=== PATIENT | male | born 1995 | race Caucasian/White ===

== ENCOUNTER 2016-02-28 16:07 | Inpatient (IN) | payer BC, OTHER ==
[2016-02-28] MEDS ORDERED: ONDANSETRON 4 MG/2 ML VIAL ONE (16:19)
[2016-02-28] MEDS ORDERED: ONDANSETRON 4 MG/2 ML VIAL IVP ONE (16:20)
[2016-02-28] MEDS ORDERED: NS 1,000 ML IV ONE ×2 (16:35→17:56)
[2016-02-28] MEDS ORDERED: PROMETHAZINE HCL 25 MG/ML INJ IVP ONE ×2 (16:35→17:50)
[2016-02-28 16:41] LABS: % IMMATURE GRANULYOCYTES 0.4 % (0.0-1.1); ABSOLUTE IMMATURE GRANULOCYTES 0.04 10^3/uL (0.00-0.10); ADD DIFF? NO; ADD MORPH? NO; ADD SCAN? NO; ATYPICAL LYMPHOCYTE FLAG 40 (0-99); FRAGMENT RBC FLAG 0 (0-99); HEMATOCRIT 51.2 % (40.0-51.0); HEMOGLOBIN 18.1 g/dL (13.7-17.5); LEFT SHIFT FLG 0 (0-99); LIPEMIA HEMOLYSIS FLAG 90 (0-99); MEAN CELL HEMOGLOBIN 29.1 pg (27.9-34.1); MEAN CELL HEMOGLOBIN CONCENTR. 35.4 g/dL (32.4-36.7); MEAN CELL VOLUME 82.2 fL (81.5-99.8); MEAN PLATELET VOLUME 9.3 fL (8.7-11.7); PLATELET CLUMPS FLAG 0 (0-99); PLATELET COUNT 272 10^3/uL (150-400); RED BLOOD CELL COUNT 6.23 10^6/uL (4.40-6.38); RED CELL DISTRIBUTION WIDTH 12.6 % (11.5-15.2)
[2016-02-28 16:48] LABS: ALANINE AMINOTRANSFERASE 47 IU/L (21-72); ALBUMIN 4.7 g/dL (3.5-5.0); ALKALINE PHOSPHATASE 109 IU/L (38-126); ANION GAP 20 mEq/L (8-16); ASPARTATE AMINOTRANSFERASE 44 IU/L (17-59); BILIRUBIN,TOTAL 0.7 mg/dL (0.1-1.4); BILIRUBIN-CONJUGATED 0.3 mg/dL (0.0-0.5); BILIRUBIN-UNCONJUGATED 0.4 mg/dL (0.0-1.1); CALCIUM 9.7 mg/dL (8.5-10.4); CARBON DIOXIDE 21 mEq/l (22-31); CHLORIDE 101 mEq/L (97-110); CREATININE 0.9 mg/dL (0.7-1.3); GLOMERULAR FILTRATION RATE > 60; GLUCOSE 150 mg/dL (70-100); POTASSIUM 3.7 mEq/L (3.5-5.2); SODIUM 142 mEq/L (134-144)
--- NOTE | 2016-02-28 16:58 | EDPHY ---
H & P Time Seen by Provider: 02/28/16 16:31 HPI/ROS: CHIEF COMPLAINT: vomiting HISTORY OF PRESENT ILLNESS: Patient is a 20-year-old male with a history of cyclic vomiting syndrome who presents to the emergency department with typical vomiting syndrome symptoms. Patient's symptoms are 2-3 hours ago. He has had numerous episodes of nonbloody emesis. He denies any significant abdominal pain. He has had no diarrhea. He denies fevers or chills. Patient does use marijuana regularly. REVIEW OF SYSTEMS: My complete review of systems is negative except as mentioned in the HPI. Past Medical/Surgical History: Includes cyclic vomiting syndrome, eating disorder (reported to be secondary to cyclic vomiting syndrome) Past surgical history: Negative Social history: Patient uses THC. No smoking. Smoking Status: Never smoked Physical Exam: 137/91, 81, 18, 92% on room air GENERAL: Well-appearing, in no acute distress, alert. HEENT: Eyes normal to inspection, normal pharynx, no signs of dehydration. NECK: No thyromegaly, no lymphadenopathy, supple. RESPIRATORY: Clear to auscultation bilaterally, no rales, rhonchi or wheezing. CVS: Regular rate and rhythm, no rubs, murmurs, or gallops. ABDOMEN: Soft, nontender, nondistended, no organomegaly. Benign. BACK: Normal to inspection, no CVA tenderness. SKIN: Normal color, no rash, warm, dry. No pallor. EXTREMITIES: No pedal edema, no calf tenderness, no Homans sign or cords, no joint swelling. NEURO/PSYCH: Alert and oriented, normal mood and affect, normal motor sensory exam. Constitutional: Initial Vital Signs Heart Rate 81 02/28/16 16:12 Respiratory Rate 18 02/28/16 16:12 Blood Pressure 137/91 H 02/28/16 16:12 O2 Sat (%) 92 02/28/16 16:12 O2 Delivery Mode Room Air Allergies/Adverse Reactions: haloperidol Allergy (Verified 02/04/16 15:48) Home Medications: Medication Instructions Recorded NK [No Known Home Meds] 02/04/16 Medical Decision Making ED Course/Re-evaluation: In the emergency department I discussed possible etiologies. I discussed the patient's typical treatment. He normally receives Phenergan IV fluid. Patient was given Phenergan 12.5 mg IV and normal saline 1 L for IV hydration. I discussed the plan with the patient. I answered all his questions. Patient had minimally elevated white count. His hematocrit is elevated at 51. His chemistry showed a slightly low bicarb. LFTs and lipase normal. 1834: I rechecked the patient. He is lying comfortably in the room. His abdomen is soft, nontender nondistended. He was given a challenge of liquid. On recheck the patient was nauseated and had an episode of emesis. He continues to feel nauseated at this time. He will be admitted for further observation and treatment. I discussed this with the hospitalist service. Differential Diagnosis: My differential includes but is not limited to cyclic vomiting syndrome, small- bowel obstruction, perforation, pancreatitis, cholecystitis, dehydration - Data Points Laboratory Results: Laboratory Results 02/28/16 16:25 02/28/16 16:25 02/28/16 16:25 WBC 10.85 H 10^3/uL (3.80-9.50) RBC 6.23 10^6/uL (4.40-6.38) Hgb 18.1 H g/dL (13.7-17.5) Hct 51.2 H % (40.0-51.0) MCV 82.2 fL (81.5-99.8) MCH 29.1 pg (27.9-34.1) MCHC 35.4 g/dL (32.4-36.7) RDW 12.6 % (11.5-15.2) Plt Count 272 10^3/uL (150-400) MPV 9.3 fL (8.7-11.7) Neut % (Auto) 83.6 H % (39.3-74.2) Lymph % (Auto) 12.6 L % (15.0-45.0) [place] % (Auto) 3.2 L % (4.5-13.0) Eos % (Auto) 0.1 L % (0.6-7.6) Baso % (Auto) 0.1 L % (0.3-1.7) Nucleat RBC Rel Count 0.0 % (0.0-0.2) Absolute Neuts (auto) 9.07 H 10^3/uL (1.70-6.50) Absolute Lymphs (auto) 1.37 10^3/uL (1.00-3.00) Absolute Monos (auto) 0.35 10^3/uL (0.30-0.80) Absolute Eos (auto) 0.01 L 10^3/uL (0.03-0.40) Absolute Basos (auto) 0.01 L 10^3/uL (0.02-0.10) Absolute Nucleated RBC 0.00 10^3/uL (0-0.01) Immature Gran % 0.4 % (0.0-1.1) Immature Gran # 0.04 10^3/uL (0.00-0.10) Sodium 142 mEq/L (134-144) Potassium 3.7 mEq/L (3.5-5.2) Chloride 101 mEq/L (97-110) Carbon Dioxide 21 L mEq/l (22-31) Anion Gap 20 mEq/L (8-16) BUN 4 L mg/dL (7-23) Creatinine 0.9 mg/dL (0.7-1.3) Estimated GFR > 60 Glucose 150 H mg/dL (70-100) Calcium 9.7 mg/dL (8.5-10.4) Total Bilirubin 0.7 mg/dL (0.1-1.4) Conjugated Bilirubin 0.3 mg/dL (0.0-0.5) Unconjugated Bilirubin 0.4 mg/dL (0.0-1.1) AST 44 IU/L (17-59) ALT 47 IU/L (21-72) Alkaline Phosphatase 109 IU/L (38-126) Total Protein 8.0 g/dL (6.3-8.2) Albumin 4.7 g/dL (3.5-5.0) Lipase 128.0 IU/L (23-300) Medications Given: Discontinued Medications Sodium Chloride (Ns) 1,000 mls @ 0 mls/hr IV ONCE ONE PRN Reason: Wide Open Stop: 02/28/16 16:36 Last Admin: 02/28/16 16:36 Dose: 1,000 mls Sodium Chloride (Ns) 1,000 mls @ 0 mls/hr IV ONCE ONE PRN Reason: Wide Open Stop: 02/28/16 17:57 Last Admin: 02/28/16 17:56 Dose: 1,000 mls Lorazepam (Ativan Injection) 1 mg IVP EDNOW ONE Stop: 02/28/16 17:22 Last Admin: 02/28/16 17:22 Dose: 1 mg Ondansetron HCl (Zofran) 4 mg IVP EDNOW ONE Stop: 02/28/16 16:21 Last Admin: 02/28/16 16:57 Dose: 4 mg Promethazine HCl (Phenergan Injection) 12.5 mg IVP ONCE ONE Stop: 02/28/16 16:36 Last Admin: 02/28/16 16:57 Dose: 12.5 mg Promethazine HCl (Phenergan Injection) 12.5 mg IVP ONCE ONE Stop: 02/28/16 17:51 Last Admin: 02/28/16 17:52 Dose: Not Given Departure - Departure Disposition: [facility] Acute Clinical Impression: Cyclical vomiting Qualifiers: Qualifier Code: (G43.A0) Cyclical vomiting, not intractable Condition: Good
[2016-02-28] MEDS ORDERED: LORazepam 2 MG/ML INJ ONE (17:14)
[2016-02-28] MEDS ORDERED: LORazepam 2 MG/ML INJ IVP ONE (17:21)
--- NOTE | 2016-02-28 17:51 | DX ---
PA AND LATERAL CHEST FEBRUARY 28, 2016 INDICATION: Trauma. FINDINGS: No pneumothorax. No pneumomediastinum. Bones and soft tissues are normal. No fracture. IMPRESSION: Negative radiograph of the chest.
[2016-02-28] MEDS ORDERED: PROMETHAZINE HCL 25 MG/ML INJ IVP PRN (19:56)
[2016-02-28] MEDS ORDERED: ONDANSETRON DISINTEGRATING 4 MG TAB PO PRN (19:56)
[2016-02-28] MEDS ORDERED: LORazepam 2 MG/ML INJ IVP PRN (19:56)
[2016-02-28] MEDS ORDERED: ACETAMINOPHEN 325 MG TAB PO PRN (19:56)
[2016-02-28] MEDS ORDERED: NS 1,000 ML IV SCH (20:00)
[2016-02-28] MEDS ORDERED: IBUPROFEN 200 MG TAB PO PRN (20:24)
[2016-02-28] MEDS ORDERED: AMITRIPTYLINE HCL 50 MG TAB PO PRN (20:24)
--- NOTE | 2016-02-28 20:40 | GHP ---
[f rep st] HISTORY AND PHYSICAL DATE OF ADMISSION: 02/28/2016 CHIEF COMPLAINT: Vomiting. HISTORY OF PRESENT ILLNESS: This is a 20-year-old man with a history of marijuana hyperemesis, who presents with uncontrollable vomiting. This started today. He estimates he has vomited about 20 times. This has been bilious but not bloody. This feels like his previous episodes of uncontrolled vomiting. He has some abdominal pain which started after he has been vomiting. He verbally gave me permission to discuss his healthcare with his parents. He initially told me he has not been using marijuana, but his parents contradicted this. PAST MEDICAL/SURGICAL HISTORY: 1. Repeated episodes of marijuana hyperemesis. 2. Ongoing marijuana abuse. 3. Eating disorder. MEDICATIONS: Please see medication reconciliation. ALLERGIES: Haldol. FAMILY HISTORY: No one else has been sick around him. SOCIAL HISTORY: Uses marijuana, as above. REVIEW OF SYSTEMS: 10-point review of systems is conducted and is negative except per HPI. PHYSICAL EXAM: VITAL SIGNS: Blood pressure 137/91, heart rate 81, respiration rate 18, saturating 92% on room air, temperature 36.8. GENERAL: The patient is a withdrawn-appearing young man, who appears moderately distressed. HEENT: Shows him to have no scleral icterus. CARDIOVASCULAR: Regular rate and rhythm. There are no murmurs, rubs, or gallops. PULMONARY: Lungs clear bilaterally. ABDOMINAL EXAM: Soft. He is mildly tender to palpation diffusely. There is no mass or hepatosplenomegaly. SKIN: Shows no rash. : Exam showed no [place]. NEUROLOGIC EXAM: Shows him to be alert and oriented x3. He is moving all extremities. PSYCHIATRIC: Exam shows a withdrawn affect. LABS: Hemoglobin is 18, white count is 10, bicarb is 21, glucose 150. LFTs are normal. DATA: 1. Chest x-ray, which I personally viewed and interpreted, shows nothing acute. This is normal. 2. I discussed this with Dr. Vaughn. Will admit to Med/Surg. IMPRESSION AND PLAN: A 20-year-old man with likely marijuana hyperemesis presents with uncontrolled vomiting. 1. Uncontrolled vomiting: Strongly suspect that this is marijuana hyperemesis much more so than cyclic vomiting syndrome. Treat him symptomatically with fluids and antiemetics. He has had what sounds like dystonic reactions to Haldol in the past. 2. Ongoing marijuana abuse: His father pulled me aside and let me know that the family has planned an intervention for next Tuesday. The patient himself does not know this. This seems like a very appropriate next step for him. /[id number]/MODL MTDD
[2016-02-28] MEDS: ONDANSETRON 4 MG/2 ML VIAL IVP PRN (21:07)
[2016-02-29] MEDS: ONDANSETRON 4 MG/2 ML VIAL IVP PRN (05:47)
[2016-02-29 06:16] LABS: % IMMATURE GRANULYOCYTES 0.2 % (0.0-1.1); ABSOLUTE IMMATURE GRANULOCYTES 0.01 10^3/uL (0.00-0.10); ADD DIFF? NO; ADD MORPH? NO; ADD SCAN? NO; ATYPICAL LYMPHOCYTE FLAG 70 (0-99); FRAGMENT RBC FLAG 0 (0-99); HEMOGLOBIN 14.4 g/dL (13.7-17.5); LEFT SHIFT FLG 0 (0-99); LIPEMIA HEMOLYSIS FLAG 90 (0-99); MEAN CELL HEMOGLOBIN 29.9 pg (27.9-34.1); MEAN PLATELET VOLUME 9.4 fL (8.7-11.7); PLATELET CLUMPS FLAG 0 (0-99); PLATELET COUNT 226 10^3/uL (150-400); RED BLOOD CELL COUNT 4.82 10^6/uL (4.40-6.38); RED CELL DISTRIBUTION WIDTH 12.7 % (11.5-15.2)
[2016-02-29 06:23] LABS: ANION GAP 11 mEq/L (8-16); CALCIUM 8.5 mg/dL (8.5-10.4); CARBON DIOXIDE 23 mEq/l (22-31); CHLORIDE 107 mEq/L (97-110); CREATININE 0.7 mg/dL (0.7-1.3); GLOMERULAR FILTRATION RATE > 60; GLUCOSE 86 mg/dL (70-100); POTASSIUM 3.8 mEq/L (3.5-5.2); SODIUM 141 mEq/L (134-144)
--- NOTE | 2016-02-29 15:45 | HOSPPROG ---
Hospitalist Progress Note Assessment/Plan: Cannabis hyperemesis syndrome Intractable nausea/vomiting - improved Severe Protein-calorie malnutrition Underweight Risk of refeeding syndrome Cannabis addiction -prn antiemetics. -Trial clear liquid diet. May ADAT. -Counseled on cessation. However pt does not wish to quit smoking marijuana. He feels that the CHS is tolerable bc it only occurs sometimes. He does not understand that gravity of his illness, of being extremely underweight/ malnourished -- says that it is "morbid" to bring up potential complications including that can result from continued weight loss. -Discussed pt's case with his parents for about 25 minutes. They are planning an intervention on Tuesday morning with an post closing specialist from an inpatient Rehab facility in [place] called [facility]. -Put pt on a psychiatric hold -- his behavior is harmful to his health. Recommend daily evaluation of patient for whether or not to lift legal hold. -Pt was previously sent to Psych inpt unit, but both he and his parents were dissatisfied with the treatment he had received there. They also felt the Tx at the Eating disorder inpt unit was not helpful. They would really like to send him to an addiction inpt facility in [place] now (post closing specialist arriving on AM for intervention). -Electrolyte protocol in case of refeeding syndrome. May check labs every few days to monitor electrolytes. -Low sodium diet to avoid edema in case of RFS. -VTE ppx - ambulatory, low risk. -Code status - full. Dispo: >2 midnight stay. Objective: Vital Signs Temp Pulse Resp BP Pulse Ox 36.8 C 84 16 97/52 L 97 02/29/16 11:24 02/29/16 11:24 02/29/16 11:24 02/29/16 11:24 02/29/16 11:24 Laboratory Results 02/29/16 05:47 02/29/16 05:47 02/28/16 02/29/16 03/01/16 05:59 05:59 05:59 Intake Total 3062 Balance 3062 - Time Spent With Patient Time Spent with Patient: greater than 35 minutes Time Spent with Patient: Greater than 35 minutes spent on this patients care, greater than 50% of time spent counseling, educating, and coordinating care regarding the above mentioned plan. ICD10 Worksheet Patient Problems: Problems Problem Status Diagnosed Cyclical vomiting Acute Dehydration Acute Intractable vomiting with nausea Acute Nausea & vomiting Acute Weight loss Acute
[2016-02-29] MEDS ORDERED: PROTOCOL POTASSIUM 1 DOSE MISC PRN (19:08)
[2016-02-29] MEDS ORDERED: PROTOCOL K PHOSPHATE 1 DOSE IV PRN (19:08)
[2016-02-29] MEDS ORDERED: PROTOCOL CALCIUM 1 DOSE IV PRN (19:08)
[2016-02-29] MEDS ORDERED: PROTOCOL MAGNESIUM 1 DOSE IV PRN (19:08)
[2016-02-29 20:31] LABS: IONIZED CALCIUM 1.14 MMOL/L (1.12-1.30)
[2016-02-29 20:50] LABS: MAGNESIUM 1.9 mg/dL (1.6-2.3); POTASSIUM 3.4 mEq/L (3.5-5.2)
[2016-02-29] MEDS ORDERED: POTASSIUM CL 10 MEQ TAB PO ONE (20:56)
[2016-02-29 22:17] LABS: PHENCYCLIDINE URINE BCH < 6 ng/ml (NEGATIVE)
[2016-02-29 22:28] LABS: PHENCYCLIDINE URINE BCH NEGATIVE (NEGATIVE); TETRAHYDROCANNABINOL URINE 429 ng/mL (NEGATIVE)
[2016-03-01 06:01] LABS: IONIZED CALCIUM 1.18 MMOL/L (1.12-1.30)
[2016-03-01 06:18] LABS: MAGNESIUM 1.9 mg/dL (1.6-2.3); POTASSIUM 4.4 mEq/L (3.5-5.2)
--- NOTE | 2016-03-01 14:31 | HOSPPROG ---
Hospitalist Progress Note Assessment/Plan: * marijuana hyperemesis syndrome * this is been a severe problem. The patient was in inpatient psych firs during the summer and parents felt this was not that helpful. He was actually sent to eating disorder clinic from inpatient psych as they thought that he might have anorexia. * Family is planning and intervention Tuesday with a therapist from [place] * at this point even though his actions are compromising his help her do not believe that he is actively suicidal * he does not seem like he is a flight risk at this time. * I do not believe he should be on hold * will however keep him in the hospital another day for this intervention as planned Subjective: not having any vomiting. No abdominal pain Objective: Vital Signs Temp Pulse Resp BP Pulse Ox 36.8 C 78 16 104/72 98 03/01/16 10:33 03/01/16 10:33 03/01/16 10:33 03/01/16 10:33 03/01/16 10:33 Laboratory Results 03/01/16 05:35 02/29/16 03/01/16 03/02/16 05:59 05:59 05:59 Intake Total 3970 Balance 3970 - Physical Exam Constitutional: no apparent distress, appears nourished, not in pain, cachectic Eyes: anicteric sclera, EOMI Ears, Nose, Mouth, Throat: moist mucous membranes, hearing normal Cardiovascular: regular rate and rhythym Respiratory: no respiratory distress Gastrointestinal: normoactive bowel sounds, soft, non-tender abdomen, no palpable masses Neurologic: AAOx3 Psychiatric: interacting appropriately, not anxious, not encephalopathic, thought process linear ICD10 Worksheet Patient Problems: Problems Problem Status Diagnosed Cyclical vomiting Acute Dehydration Acute Intractable vomiting with nausea Acute Nausea & vomiting Acute Weight loss Acute
[2016-03-01 21:21] LABS: POTASSIUM 3.9 mEq/L (3.5-5.2)
[2016-03-01] MEDS ORDERED: POTASSIUM CL 10 MEQ TAB PO ONE (22:18)
[2016-03-01 22:27] VITALS: RESP 18
[2016-03-02 05:45] LABS: IONIZED CALCIUM 1.18 MMOL/L (1.12-1.30)
[2016-03-02 07:20] VITALS: BP 98/57; PULSE 65; TEMP 97.8; O2SAT 95
--- NOTE | 2016-03-03 00:01 | GDS ---
[f rep st] DISCHARGE SUMMARY DISCHARGE DIAGNOSES: Marijuana hyperemesis syndrome. PHYSICAL EXAM: GENERAL: The patient is alert. I evaluate the patient on the day of discharge. VITAL SIGNS: Afebrile, 36.6. Pulse is 65. Respiratory rate is 18. Blood pressure is 98/57. He is saturating 95% on room air. HOSPITAL COURSE: The patient is a 20-year-old male, who presented to the emergency room with complaints of nausea and vomiting. He has had several hospital admissions for the same problem, which has been severe. He has been evaluated and diagnosed with marijuana hyperemesis syndrome. It is recommended that he go to an eating disorder clinic for further assistance. I have had a discussion with the patient. He is contracted for safety. He is not suicidal and wishes to get better. He does tell me that he will refrain from marijuana in the future. Of note, the patient's tox screen was also positive for cocaine. I have spent a lengthy time with the patient, as well as case management and his family. There are no pending studies. DISCHARGE MEDICATIONS: None. FOLLOWUP: Will be with the patient's primary care provider and outpatient therapies as felt necessary. I spent greater than 35 minutes in the care, coordination, and management of this patient's disposition. /[id number]/MODL and [id number]/MODL DA
== END 2016-03-02 13:23 | disposition home or self-care (01) | DRG 896 ==
LOC: EEVIPCON 19:28 → F1N 21:05 → EEVIPCON 02-29 15:44 → OBSVTOIN 02-29 15:44 → F2N 02-29 18:40 → F3E 03-01 10:18
PROVIDERS: ADMIT Student in an Organized Health Care Education/Training Program; ATTEND Hospitalist
DX: F12.288 Cannabis dependence with other cannabis-induced disorder (principal); R11.2 Nausea with vomiting, unspecified; E43 Unspecified severe protein-calorie malnutrition; F50.9 Eating disorder, unspecified; R63.6 Underweight; Z68.1 Body mass index [BMI] 19.9 or less, adult
CPT/HCPCS: 80307; 96374; G0378; G0480; J2405; J2550